=== PATIENT | female | born 1975 | race Caucasian/White ===

== ENCOUNTER 2016-12-25 09:17 | Inpatient (IN) | payer OTHER ==
[~2016-12-25] VITALS: Ht 182.9 cm; Wt 129.3 kg
[2016-12-25 10:00] LABS: HEMOGLOBIN 9.3 gm/dl (12.3-15.3); RED BLOOD COUNT 3.64 M/UL (4.00-5.10)
[2016-12-25] MEDS ORDERED: TRANDATE 200 M200 MG PO (16:53)
[2016-12-25] MEDS ORDERED: ZESTRIL 40 MG T40 MG PO (16:54)
[2016-12-25] MEDS ORDERED: GLUCOPHAGE500 MG PO (16:54)
[2016-12-25] MEDS ORDERED: PRAVASTATIN SOD10 MG PO (16:55)
[2016-12-25] MEDS ORDERED: ZOLOFT25 MG PO (16:55)
[2016-12-25] MEDS ORDERED: IBUPROFEN800 MG PO (16:55)
[2016-12-26 05:49] LABS: HEMOGLOBIN 8.4 gm/dl (12.3-15.3); WHITE BLOOD COUNT 13.3 K/UL (4.5-11.0)
[2016-12-26 05:57] LABS: RED BLOOD COUNT 3.26 M/UL (4.00-5.10)
[2016-12-27 05:19] LABS: RED BLOOD COUNT 3.56 M/UL (4.00-5.10); WHITE BLOOD COUNT 13.9 K/UL (4.5-11.0)
[2016-12-28 04:21] LABS: HEMOGLOBIN 9.9 gm/dl (12.3-15.3); RED BLOOD COUNT 3.87 M/UL (4.00-5.10); WHITE BLOOD COUNT 15.4 K/UL (4.5-11.0)
[2016-12-28 04:45] LABS: BUN/CREATININE RATIO 11 (0-10)
[2016-12-29 03:56] LABS: HEMOGLOBIN 8.8 gm/dl (12.3-15.3); WHITE BLOOD COUNT 14.2 K/UL (4.5-11.0)
[2016-12-29 04:04] LABS: RED BLOOD COUNT 3.4 M/UL (4.00-5.10)
[2016-12-29 04:13] LABS: BUN/CREATININE RATIO 13 (0-10)
[2016-12-30 03:59] LABS: BUN/CREATININE RATIO 15 (0-10)
[2016-12-31 04:10] LABS: HEMOGLOBIN 9.1 gm/dl (12.3-15.3); RED BLOOD COUNT 3.59 M/UL (4.00-5.10); WHITE BLOOD COUNT 12.7 K/UL (4.5-11.0)
[2016-12-31 04:37] LABS: BUN/CREATININE RATIO 16 (0-10)
[2017-01-01 04:07] LABS: HEMOGLOBIN 8.2 gm/dl (12.3-15.3)
[2017-01-04 06:04] LABS: HEMOGLOBIN 8.6 gm/dl (12.3-15.3); RED BLOOD COUNT 3.41 M/UL (4.00-5.10); WHITE BLOOD COUNT 12.2 K/UL (4.5-11.0)
[2017-01-04 06:19] LABS: BUN/CREATININE RATIO 18 (0-10)
[2017-01-05 07:28] LABS: HEMOGLOBIN 8.9 gm/dl (12.3-15.3)
[2017-01-06 05:47] LABS: HEMOGLOBIN 8.6 gm/dl (12.3-15.3); RED BLOOD COUNT 3.44 M/UL (4.00-5.10); WHITE BLOOD COUNT 12.1 K/UL (4.5-11.0)
[2017-01-06 06:05] LABS: BUN/CREATININE RATIO 19 (0-10)
[2017-01-06] MEDS ORDERED: LEVEMIR FL100 UNIT/1 SQ (17:17)
[2017-01-06] MEDS ORDERED: DAKIN'S SOLUTI500 ML TOP (17:18)
[2017-01-06] MEDS ORDERED: NORVASC 5 MG TAB5 MG PO (17:19)
[2017-01-06] MEDS ORDERED: ZYVOX 600 MG T600 MG PO (17:19)
[2017-01-06] MEDS ORDERED: FERROUS SULFAT325 MG PO (17:20)
[2017-01-06] MEDS ORDERED: VITAMIN C 500500 MG PO (17:20)
[2017-01-06] MEDS ORDERED: NORCO 7.5-3251 EACH PO (17:21)
[2017-01-07 06:09] LABS: BUN/CREATININE RATIO 19 (0-10)
== END 2017-01-07 10:50 | disposition home health service (06) | DRG 853 ==
LOC: ER1 09:17 → PROG CARE 14:43 → M/S 14:43 → ZEROF 14:43 → PROG CARE 16:20 → M/S 01-01 17:53
PROVIDERS: Emergency Medicine; Family Medicine; Hospitalist; Physician Assistant; Podiatrist Foot & Ankle Surgery; ADMIT Internal Medicine
PROC: 0JBQ0ZZ Excision of Right Foot Subcutaneous Tissue and Fascia, Open Approach (ICD-10-PCS; 2016-12-27)
PROC: 0Y6V0Z0 Detachment at Right 4th Toe, Complete, Open Approach (ICD-10-PCS; principal; 2016-12-27 09:00)
PROC: 0JBQ0ZZ Excision of Right Foot Subcutaneous Tissue and Fascia, Open Approach (ICD-10-PCS; 2016-12-31)
DX: A41.9 Sepsis, unspecified organism (principal); A48.0 Gas gangrene; E87.2 Acidosis; E87.1 Hypo-osmolality and hyponatremia; M86.8X7 Other osteomyelitis, ankle and foot; E44.0 Moderate protein-calorie malnutrition; N17.9 Acute kidney failure, unspecified; E11.621 Type 2 diabetes mellitus with foot ulcer; L97.519 Non-pressure chronic ulcer of other part of right foot with unspecified severity; D50.9 Iron deficiency anemia, unspecified; D47.3 Essential (hemorrhagic) thrombocythemia; I10 Essential (primary) hypertension; E11.69 Type 2 diabetes mellitus with other specified complication; E11.42 Type 2 diabetes mellitus with diabetic polyneuropathy; B95.62 Methicillin resistant Staphylococcus aureus infection as the cause of diseases classified elsewhere; E87.5 Hyperkalemia; E83.42 Hypomagnesemia; E11.65 Type 2 diabetes mellitus with hyperglycemia; E66.9 Obesity, unspecified; Z68.38 Body mass index [BMI] 38.0-38.9, adult; Z79.84 Long term (current) use of oral hypoglycemic drugs; Z79.1 Long term (current) use of non-steroidal anti-inflammatories (NSAID); Z79.899 Other long term (current) drug therapy; Z88.0 Allergy status to penicillin; Z90.49 Acquired absence of other specified parts of digestive tract; Z98.890 Other specified postprocedural states; Z82.49 Family history of ischemic heart disease and other diseases of the circulatory system; Z83.3 Family history of diabetes mellitus; Z80.49 Family history of malignant neoplasm of other genital organs
CPT/HCPCS: 36415; 73630; 73718; 80048; 80053; 80202; 81001; 82009; 82272; 82550; 82728; 82800; 82962; 83036; 83540; 83550; 83605; 83735; 84703; 85014; 85018; 85025; 85027; 86140; 87040; 87070; 87077; 87186; 87205; 93925; 96374; 96375; 99284; J0360; J1200; J1335; J1644; J2185; J2250; J2270; J2405; J2795; J3010; J3370; J7030; J7050; J7070; J7120; Q0162; Q4133

== ENCOUNTER → 2017-01-29 | Outpatient (CLI) | payer OTHER ==
[~2017-01-29] MED LIST: DAKIN'S SOLUTI500 ML TOP; FERROUS SULFAT325 MG PO; GLUCOPHAGE500 MG PO; IBUPROFEN800 MG PO; LEVEMIR FL100 UNIT/1 SQ; NORCO 7.5-3251 EACH PO; NORVASC 5 MG TAB5 MG PO; PRAVASTATIN SOD10 MG PO; TRANDATE 200 M200 MG PO; VITAMIN C 500500 MG PO; ZESTRIL 40 MG T40 MG PO; ZOLOFT25 MG PO; ZYVOX 600 MG T600 MG PO
== END ==
LOC: OPSV 15:26
DX: E11.621 Type 2 diabetes mellitus with foot ulcer (principal)
CPT/HCPCS: 15271; Q4133

== ENCOUNTER → 2017-02-14 | Outpatient (CLI) | payer OTHER | LOC: OPSV 02-07 11:00 | DX: E11.40 Type 2 diabetes mellitus with diabetic neuropathy, unspecified (principal) | CPT/HCPCS: 15271; Q4133 ==

== ENCOUNTER → 2017-02-28 | Outpatient (CLI) | payer OTHER | LOC: OPSV 14:00 | DX: L03.119 Cellulitis of unspecified part of limb (principal) | CPT/HCPCS: 15271; Q4133 ==